=== PATIENT | male | born 1985 | race Caucasian/White ===

== ENCOUNTER 2017-05-02 08:26 | Emergency (ER) | payer SELFPAY ==
[~2017-05-02] VITALS: Ht 177.8 cm; Wt 85.0 kg
[~2017-05-02 08:26] MED LIST: PROM1SUP12 PR; PROM25SU8 PO; Z.0.NO CURRENT MEDS
[2017-05-02 08:27] VITALS: BP 166/97; PULSE 98; RESP 14; TEMP 99.7; O2SAT 96
--- NOTE | 2017-05-02 09:31 | PD ---
HPI Chief Complaint: Chest Pain Time Seen by Provider: 09:29 Travel History International Travel<30 days: No Contact w/Intl Traveler<30days: No Traveled to known affect area: No History of Present Illness HPI 32-year-old male presents to the emergency department. He is companied by his mother. He has multiple complaints. He is complaining of decreased appetite since . Had nausea on Sunday. Had diarrhea on Sunday. Onset of sore throat on Sunday. Onset of chest pain on Sunday that is worse with deep breathing, coughing and when he swallows with drinking. Also complaining of white stuff on his tongue. Denies fevers. Denies shortness of breath. Denies nasal congestion. Denies ear pain. Denies vomiting or abdominal pain. Denies body aches, headache. Chest pain is to his entire chest. It is reproducible. Denies heart palpitations. Denies illicit drug use. Denies alcohol use. Has tried taking Mucinex for symptom management. No known allergies. Denies significant past medical history. No primary care provider. Has no other medical complaints. No other modifying factors or associated signs and symptoms. [facility]LY [facility] Past Medical History Medical History: Denies Significant Hx Tetanus Vaccination: > 5 Years Past Surgical History Surgical History: No Previous Surgery Social History Alcohol Use: No Tobacco Use: No Substance Use: No Allergies-Medications (Allergen,Severity, Reaction): Coded Allergies: No Known Allergies (Verified Adverse Reaction, Unknown, 05/02/17) Reported Meds & Prescriptions Reported Meds & Active Scripts Active Nystatin Liq 100,000 unit/ml Susp 5 Ml SWISH-SWAL QID 10 Days Review of Systems Except as stated in HPI: all other systems reviewed are Neg Physical Exam Narrative GENERAL: Well-nourished, well-developed male patient, in no acute distress; afebrile, nontoxic-appearing SKIN: Warm and dry. No rash. HEAD: Atraumatic. Normocephalic. EYES: Pupils equal and round. No scleral icterus. No injection or drainage. ENT: Mucosa pink and moist. Oropharynx with exudate; without erythema or edema ; exudate may be consistent with thrush. No uvular edema. No uvular, palatal, or tonsillar deviation. Airway patent. EARS: Bilateral pinnae and external canals appear within normal limits. Bilateral tympanic membranes without erythema, dullness or perforation. MOUTH: Mucous membranes moist, no lesions, tongue and gums appear normal. Tongue with thick white coating consistent with oral thrush. NECK: Trachea midline. No lymphadenopathy. CARDIOVASCULAR: Regular rate and rhythm. No murmur appreciated. RESPIRATORY: No accessory muscle use. Clear to auscultation. Breath sounds equal bilaterally. No retractions or tachypnea. GASTROINTESTINAL: Abdomen soft, non-tender, nondistended. Hepatic and splenic margins not palpable. Bowel sounds are active 4 quadrants. MUSCULOSKELETAL: No obvious deformities. No clubbing. No cyanosis. No edema. NEUROLOGICAL: Awake and alert. Oriented 3. No obvious cranial nerve deficits. Motor grossly within normal limits. Normal speech. Moves all extremities. 5/5 strength to all extremities. PSYCHIATRIC: Appropriate mood and affect; insight and judgment normal. Data Data Last Documented VS Vital Signs Date Time Temp Pulse Resp B/P (MAP) Pulse Ox O2 Delivery O2 Flow Rate FiO2 05/02/17 08:27 99.7 98 14 166/97 (120) 96 Orders Orders Electrocardiogram (05/02/17 ) Group A Rapid Strep Screen (05/02/17 09:40) Influenzae A/B Antigen (05/02/17 09:40) Blood Glucose (05/02/17 09:40) Chest, Single Ap (05/02/17 09:40) Strep Culture (Group A) (05/02/17 10:20) Ed Discharge Order (05/02/17 11:13) [facility] Medical Decision Making Medical Screen Exam Complete: Yes Emergency Medical Condition: Yes Medical Record Reviewed: Yes Differential Diagnosis Thrush, esophageal thrush, strep pharyngitis, viral illness, pneumonia, influenza Narrative Course 32-year-old male presents emergency department with multiple complaints. Physical exam is unremarkable other than noted oral thrush. I discussed the patient with Dr. Tony, my attending physician, and he agrees my plan of care and recommend checking a blood sugar. Bedside glucose 100. Chest x-ray, influenza, rapid strep ordered. 1110: Influenza, rapid strep negative. Chest x-ray unremarkable. Nystatin prescribed for home. Instructed patient to follow up with primary care provider. Patient verbalizes understanding and agreement with treatment plan. Patient is medically cleared and stable for discharge. Discussed reasons to return to the emergency department. Patient agrees with treatment plan. The patients vital signs are stable and the patient is stable for outpatient follow- up and treatment. Patient discharged home, stable and in no acute distress. Diagnosis Primary Impression: Thrush Referrals: Primary Care Physician Patient Instructions: General Instructions Additional Instructions: Nystatin as prescribed and as needed for thrush Ibuprofen or Tylenol as directed as needed for pain Follow-up with primary care provider Return to the emergency department immediately for worsening of symptoms Med/Other Pt SpecificInfo: Prescription(s) given Scripts Nystatin Liq (Nystatin Liq) 100,000 unit/ml Susp 5 ML SWISH-SWAL QID for Infection for 10 Days, ML 1 Refill Prov: Alexa Alicia 05/02/17 Disposition: 01 DISCHARGE HOME Condition: Stable Alexa Alicia May 02, 2017 09:31
[2017-05-02] MEDS ORDERED: NYST1000 SWISH-SWAL (10:35)
--- NOTE | 2017-05-02 10:41 | RADRPT ---
EXAM DATE/TIME: 05/02/2017 09:47 [facility] COMPARISON: No previous studies available for comparison. INDICATIONS : Cough, chest pain. MEDICAL HISTORY : None. SURGICAL HISTORY : None. ENCOUNTER: Initial ACUITY: 4 - 6 days PAIN SCORE: 5/10 LOCATION: Bilateral chest FINDINGS: A single view of the chest demonstrates the lungs to be symmetrically aerated without evidence of mas s, infiltrate or effusion. The cardiomediastinal contours are unremarkable. Osseous structures are intact. CONCLUSION: 1. No acute cardiopulmonary findings. Lc Ozuna MD on May 02, 2017 at 10:39 Board Certified Radiologist. This report was verified electronically.
--- NOTE | 2017-05-02 15:20 | EKG ---
Date Performed: 05/02/2017 Time Performed: 08:46:45 PTAGE: 32 years EKG: Sinus rhythm INTRAVENTRICULAR CONDUCTION DELAY ABNORMAL ECG PREVIOUS TRACING : 08/11/1996 08.23 DOCTOR: Ivan Chase Interpretating Date/Time 05/02/2017 15:19:14
== END 2017-05-02 11:22 | disposition home or self-care (01) ==
LOC: NEPD 08:26
DX: B37.9 Candidiasis, unspecified (principal); R94.31 Abnormal electrocardiogram [ECG] [EKG]
CPT/HCPCS: 71045; 87081; 87804; 87880; 93005